=== PATIENT | male | born 1985 | race Hispanic/Latino ===

== ENCOUNTER 2022-08-20 14:11 | Emergency (ER) | payer SELFPAY ==
--- NOTE | 2022-08-20 15:33 | RAD REPORT ---
EXAM DESCRIPTION: RAD - Foot Right 3 View - 08/20/2022 3:17 pm CLINICAL HISTORY: PAIN COMPARISON: No comparisons FINDINGS/IMPRESSION: No acute fracture. No malalignment. Small dorsal aspect calcaneal spur. Nonaggr essive appearing osseous lesion in the fourth metatarsal diaphysis which may be postoperative.
--- NOTE | 2022-08-20 15:35 | RAD REPORT ---
EXAM DESCRIPTION: RAD - Ankle Right 3 View - 08/20/2022 3:17 pm CLINICAL HISTORY: ankle pain COMPARISON: No comparisons FINDINGS/IMPRESSION: No acute fracture. No malalignment. No significant focal degenerative changes.
--- NOTE | 2022-08-20 16:33 | EDPHYS ---
Physician Documentation [facility] Name: Nimesh Kim Age: 37 yrs Sex: Male : 1985 Arrival Date: 08/20/2022 Time: 14:15 Bed 12 Private MD: JAISON Physician John Hurtado HPI: 08/20 14:30 This 37 yrs old Male presents to ER via Ambulatory with complaints of Ankle jmm Injury. 14:30 The patient presents with an injury, pain. Onset: The symptoms/episode began/occurred jm acutely, just prior to arrival. 16:30 Associated signs and symptoms: Pertinent positives: swelling. Is a 37-year-old male jmm with history of diabetes mellitus the presents emerged part with complaints of right ankle pain. Patient states that he stepped in a hole while performing yard work this past , rolling his right ankle. Patient complains of pain mainly to the lateral and medial ankle but also initially did have some pain to the plantar surface of his foot. Denies other known injury.. Historical: - Allergies: 14:27 dust; tw2 14:27 Pet dander; tw2 - Home Meds: 14:27 metformin 500 mg Oral tab 1 tab 2 times per day [Active]; tw2 - PMHx: 14:27 Diabetes mellitus; tw2 - PSHx: 14:27 Right foot sx; Tonsillectomy; tw2 - Immunization history:: Client reports having NOT received the Covid vaccine. - Social history:: Smoking status: Patient reports the use of cigarette tobacco products, 1 pk a week. ROS: 16:30 Constitutional: Negative for fever, chills, and weight loss, Cardiovascular: Negative jmm for chest pain, palpitations, and edema, Respiratory: Negative for shortness of breath, cough, wheezing, and pleuritic chest pain. 16:30 MS/extremity: Positive for injury or acute deformity, pain. 16:30 All other systems are negative. Exam: 16:30 Constitutional: This is a well developed, well nourished patient who is awake, alert, jmm and in no acute distress. Head/Face: atraumatic. Eyes: EOMI, no conjunctival erythema appreciated ENT: Moist Mucus Membranes Neck: Trachea midline, Supple Chest/axilla: Normal chest wall appearance and motion. Cardiovascular: Regular rate and rhythm. No edema appreciated Respiratory: Normal respirations, no respiratory distress appreciated Abdomen/GI: Non distended Back: Normal ROM Skin: General appearance color normal 16:30 Musculoskeletal/extremity: Mild swelling noted to the ankle, lateral and medial malleolus tender to palpation, no obvious deformity, full dorsalis pedis pulse, compartments are soft, neurovascular intact. 16:30 Skin: Appearance: Color: normal in color. 16:30 Neuro: Orientation: is normal, Mentation: is normal, Memory: is normal. 16:30 Psych: Behavior/mood is pleasant, cooperative. Vital Signs: 14:26 BP 137 / 90; Pulse 118; Resp 17; Temp 98.8(TE); Pulse Ox 97% on R/A; Weight 90.72 kg tw2 (R); Height 5 ft. 8 in. (172.72 cm); Pain 3/10; 14:26 Body Mass Index 30.41 (90.72 kg, 172.72 cm) tw2 MDM: 14:33 Patient medically screened. [facility] 16:32 Data reviewed: vital signs, nurses notes. Counseling: I had a detailed discussion with ras the patient and/or guardian regarding: the historical points, exam findings, and any diagnostic results supporting the discharge/admit diagnosis, radiology results, the need for outpatient follow up. 08/20 14:29 Order name: Ankle Right 3 View XRAY; Complete Time: 15:35 [facility] 08/20 14:29 Order name: Foot Right 3 View XRAY; Complete Time: 15:35 [facility] 08/20 16:16 Order name: Shane wrap-joint; Complete Time: 16:43 [facility] Administered Medications: No medications were administered Disposition Summary: 08/20/22 16:32 Discharge Ordered Location: Home [facility] Condition: Stable [facility] Diagnosis - Sprain of ankle [facility] Followup: [facility] - With: Private Physician - When: 2 - 3 days - Reason: Recheck today's complaints, Continuance of care, Re-evaluation by your physician Discharge Instructions: - Ankle Sprain [facility] - Discharge Summary Sheet tw2 Forms: - Medication Reconciliation Form [facility] - Thank You Letter mitch - Antibiotic Education mitch - Prescription Opioid Use [facility] - Work release form tw2 Signatures: Dispatcher [employer] Rod Ponce PA PA jmm Wise, Tara RN RN tw2 Corrections: (The following items were deleted from the chart) 14:27 Allergies: No Known Allergies; tw2 tw2
--- NOTE | 2022-08-20 16:33 | ER ---
Nurse's Notes [facility] Name: Nimesh Kim Age: 37 yrs Sex: Male : 1985 Arrival Date: 08/20/2022 Time: 14:15 Bed 12 Private MD: Diagnosis: Sprain of ankle Presentation: 08/20 14:26 Chief complaint: Patient states: i was cutting the grass after work and i tw2 rolled my RIGHT ankle. i have had surgery there and it is hurting in certain places. i want to get it checked out. Coronavirus screen: At this time, the client does not indicate any symptoms associated with coronavirus-19. Ebola Screen: Patient denies travel to an Ebola-affected area in the 21 days before illness onset. Initial Sepsis Screen: Does the patient meet any 2 criteria? HR > 90 bpm. No. Patient's initial sepsis screen is negative. Does the patient have a suspected source of infection? No. Patient's initial sepsis screen is negative. Risk Assessment: Do you want to hurt yourself or someone else? Patient reports no desire to harm self or others. Onset of symptoms was August 20, 2022. 14:26 Method Of Arrival: Ambulatory tw2 14:26 Acuity: TAMEKA 4 tw2 Triage Assessment: 14:29 General: Appears in no apparent distress. well groomed, Behavior is calm, cooperative, tw2 appropriate for age. Pain: Complains of pain in right foot. Musculoskeletal: Range of motion: intact in all extremities. Historical: - Allergies: 14:27 dust; tw2 14:27 Pet dander; tw2 - Home Meds: 14:27 metformin 500 mg Oral tab 1 tab 2 times per day [Active]; tw2 - PMHx: 14:27 Diabetes mellitus; tw2 - PSHx: 14:27 Right foot sx; Tonsillectomy; tw2 - Immunization history:: Client reports having NOT received the Covid vaccine. - Social history:: Smoking status: Patient reports the use of cigarette tobacco products, 1 pk a week. Screenin:11 Abuse screen: Denies threats or abuse. Nutritional screening: No deficits noted. tw2 Tuberculosis screening: No symptoms or risk factors identified. Fall Risk None identified. Assessment: 15:33 General: Appears in no apparent distress. Behavior is calm, cooperative. Pain: Pain hb currently is 3 out of 10 on a pain scale. Neuro: Level of Consciousness is awake, alert, obeys commands, Oriented to person, place, time, situation. Cardiovascular: Patient's skin is warm and dry. Respiratory: Respiratory effort is even, unlabored, Respiratory pattern is regular, symmetrical. GI: No signs and/or symptoms were reported involving the gastrointestinal system. : No signs and/or symptoms were reported regarding the genitourinary system. EENT: No signs and/or symptoms were reported regarding the EENT system. Derm: Skin is pink, warm \T\ dry. Musculoskeletal: Reports RIGHT ANKLE PAIN. 16:23 Reassessment: Patient appears in no apparent distress at this time. Patient and/or hb family updated on plan of care and expected duration. Pain level reassessed. Patient is alert, oriented x 3, equal unlabored respirations, skin warm/dry/pink. Vital Signs: 14:26 BP 137 / 90; Pulse 118; Resp 17; Temp 98.8(TE); Pulse Ox 97% on R/A; Weight 90.72 kg tw2 (R); Height 5 ft. 8 in. (172.72 cm); Pain 3/10; 14:26 Body Mass Index 30.41 (90.72 kg, 172.72 cm) tw2 ED Course: 14:15 Patient arrived in ED. ja2 14:16 Rod Black PA is PHCP. [facility] 14:16 John Hurtado MD is Attending Physician. [facility] 14:27 Triage completed. tw2 14:27 Arm band placed on. tw2 15:11 pt in main lobby seated in chair. tw2 15:19 Ankle Right 3 View XRAY In Process Unspecified. EDMS 15:19 Foot Right 3 View XRAY In Process Unspecified. EDMS 15:33 Karina Garcia, RN is Primary Nurse. hb Administered Medications: No medications were administered Medication: 15:11 VIS not applicable for this client. tw2 Outcome: 16:32 Discharge ordered by . [facility] 16:44 Patient left the ED. hb Signatures: Dispatcher [employer] EDMS Rod Black PA PA jmm Baxter, Heather, RN RN Brinda Lozada RN RN tw2 Flor Arreola ja2 Corrections: (The following items were deleted from the chart) 1429 14:27 Allergies: No Known Allergies; tw2 tw2
[2022-08-20 16:58] VITALS: BP 137/90; TEMP 98.8; O2SAT 97
== END 2022-08-20 16:44 | disposition home or self-care (01) ==
LOC: ER 14:11
DX: S93.401A Sprain of unspecified ligament of right ankle, initial encounter (principal); E11.9 Type 2 diabetes mellitus without complications; F17.210 Nicotine dependence, cigarettes, uncomplicated
CPT/HCPCS: 99282

== ENCOUNTER → 2023-12-10 | Emergency (ER) | payer OTHER ==
--- OUTSIDE RECORDS SUMMARY | 2023-12-10 17:29 | XMS REPORT | Continuity of Care Document ---
Author Name Unknown Address [address] [facility] [address] [place] [address] [facility] thconnect Address [address] [facility] [place] [address] Care Team Providers Care Vice Chancellor Name Role Phone Unavailable Unavailable Unavailable Encounters Start Date/Time End Date/Time Encounter Type Admission Type Attending [facility] Facility Care Department Encounter ID Source 2023-08-10 08:07:00 2023-08-10 08:07:00 Outpatient SFA SFA [id number] Adam Cazares 2023-05-24 13:09:55 2023-05-24 13:09:55 Outpatient SFA SFA [id number] Adam Cazares 2023-05-14 11:39:35 2023-05-14 11:39:35 Outpatient SFA SFA [id number] Adam Cazares 2023-02-09 07:57:02 2023-02-09 07:57:02 Outpatient SFA SFA [id number] Adam Cazares 2023-01-16 08:05:54 2023-01-16 08:05:54 Outpatient SFA SFA [id number] Adam Cazares 2022-10-18 13:04:42 2022-10-18 13:04:42 Outpatient SFA SFA [id number] Adam Cazares 2022-10-13 10:21:50 2022-10-13 10:21:50 Outpatient SFA SFA [id number] Adam Cazares Results Test Description Test Time Test Comments Results Result Co mments Source COMPREHENSIVE METABOLIC [id number] 05:20:01* Test Item Value Reference Range Interpretation Comme nts GLUCOSE (test code = 2217) 156 MG/DL 70-99 H BUN (test code = 2207) 17 MG/DL 6-20 CREATININE (test code = 2213) 0.94 MG/DL 0.80-1.40 eGFR (2020 CKD-EPI) (test code = ) 106 ML/MIN/1.73 >60 CALC BUN/CREAT (test code = 2234) 18 RATIO 6-28 SODIUM (test code = 2230) 137 MEQ/L 133-146 POTASSIUM (test code = 2227) 4.2 MEQ/L 3.5-5.4 CHLORIDE (test code = 2214) 100 MEQ/L 95-107 CARBON DIOXIDE (test code = 2205) 24 MEQ/L 19-31 CALCIUM (test code = 2208) 9.5 MG/DL 8.5-10.5 PROTEIN, TOTAL (test code = 2228) 7.4 G/DL 6.1-8.3 ALBUMIN (test code = 2200) 4.7 G/DL 3.5-5.2 CALC GLOBULIN (test code = 2239) 2.7 G/DL 1.9-3.7 CALC A/G RATIO (test code = 2233) 1.7 RATIO 1.0-2.6 BILIRUBIN, TOTAL (test code = 2206) 0.4 MG/DL See_Comment [Automated me ssage] The system which generated this result transmitted reference range: <=1.2. The reference range was not used to interpret this result as normal/abnormal. ALKALINE PHOSPHATASE (test code = 2203) 89 U/L 40-117 AST (test code = 2217) 32 U/L 9-50 ALT (test code = 2218) 58 U/L 5-50 H LIPID [id number] 05:43:22* Test Item Value Reference Range Interpretation Comme nts CHOLESTEROL (test code = 0) 174 MG/DL <200 TRIGLYCERIDES (test code = 2232) 138 MG/DL <150 HDL CHOLESTEROL (test code = 2220) 35 MG/DL >39 L CALC LDL CHOL (test code = 7) 113 MG/DL <100 H NOTE: CALCULATED LDL IS BASED ON ADIS-PETERSEN METHOD WHICHINCLUDES ADJUSTABLE TRIGLYCERIDE:VLDL CHOLESTEROL RATIO.THIS FACTOR VARIES BY MEASURED TRIGLYCERIDE AND NON-HDLCHOLESTEROL CONCENTRATIONS WITH INCREASED CALCULATED LDL SEENIN HIGHER TRIGLYCERIDE OR LOWER NON-HDL SPECIMENS. FOR MOREINFORMATION, SEE CLIENT ANNOUNCEMENT AT [email or web address] /[email or web address] [email or web address] RATIO LDL/HDL (test code = 2238) 3.23 RATIO <3.55 HEMOGLOBIN [id number] 02:29:51* Test Item Value Reference Range Interpretation Comme nts HEMOGLOBIN A1c (test code = 06636) 8.0 % 4.2-5.6 H CITIZEN OF [place] [employer] GUIDELINES FOR HGB A1C: PREDIABETES/INCREASED RISK . . . . . . . 5.7-6.4% DIAGNOSIS OF DIABETES . . . . . . . . . >=6.5% WITH CONFIRMATION OR APPROPRIATE SYMPTOMS NOTE: ASSAY MAY BE AFFECTED BY HEMOGLOBINOPATHIES (SICKLE CELL ANEMIA, S-C DISEASE, OTHERS) OR ARTIFICIALLY LOWERED BY DECREASED RED CELL SURVIVAL (HEMOLYTIC ANEMIAS, BLOOD LOSS, ETC.). CONSIDER ALTERNATE TESTING OR LABORATORY CONSULTATION. [facility] has important pathology staff changes effective 01/03/2023. New pathology staff will provide uninterrupted, excellent patient care and clinical consultation. See URL: [email or web address]. UNLESS OTHERWISE INDICATED, ALL TESTING PERFORMED AT [facility] [address] [place] [address] TRANSFER MAN: DAINA GALE M.D. CLIA NUMBER [id number] [facility]. [id number] LIPID [id number] 05:28:46* Test Item Value Reference Range Interpretation Comme nts CHOLESTEROL (test code = 2210) 225 MG/DL <200 H TRIGLYCERIDES (test code = 2232) 162 MG/DL <150 H HDL CHOLESTEROL (test code = 2220) 32 MG/DL >39 L CALC LDL CHOL (test code = 2237) 162 MG/DL <100 H NOTE: CALCULATED LDL IS BASED ON ADIS-PETERSEN METHOD WHICHINCLUDES ADJUSTABLE TRIGLYCERIDE:VLDL CHOLESTEROL RATIO.THIS FACTOR VARIES BY MEASURED TRIGLYCERIDE AND NON-HDLCHOLESTEROL CONCENTRATIONS WITH INCREASED CALCULATED LDL SEENIN HIGHER TRIGLYCERIDE OR LOWER NON-HDL SPECIMENS. FOR MOREINFORMATION, SEE CLIENT ANNOUNCEMENT AT [email or web address] /[email or web address] RISK RATIO LDL/HDL (test code = 2238) 5.06 RATIO <3.55 H HEMOGLOBIN [id number] 01:53:52* Test Item Value Reference Range Interpretation Comme nts HEMOGLOBIN A1c (test code = 56961) 8.0 % 4.2-5.6 H CITIZEN [place] [employer] GUIDELINES FOR HGB A1C: PREDIABETES/INCREASED RISK . . . . . . . 5.7-6.4% DIAGNOSIS OF DIABETES . . . . . . . . . >=6.5% WITH CONFIRMATION OR APPROPRIATE SYMPTOMS NOTE: ASSAY MAY BE AFFECTED BY HEMOGLOBINOPATHIES (SICKLE CELL ANEMIA, S-C DISEASE, OTHERS) OR ARTIFICIALLY LOWERED BY DECREASED RED CELL SURVIVAL (HEMOLYTIC ANEMIAS, BLOOD LOSS, ETC.). CONSIDER ALTERNATE TESTING OR LABORATORY CONSULTATION. UNLESS OTHERWISE INDICATED, ALL TESTING PERFORMED [facility] [address] [place] [address] TRANSFER MAN: ELIZABETH SANTAMARIA M.D. [place] NUMBER [id number] [facility]. [id number]
--- NOTE | 2023-12-10 18:37 | RAD REPORT ---
EXAM DESCRIPTION: RAD - Chest Pa And Lat (2 Views) - 12/10/2023 6:12 pm CLINICAL HISTORY: COUGH COMPARISON: No comparisons TECHNIQUE: PA and lateral views of the chest were obtained. FINDINGS: The lungs are clear. Heart size is mildly prominent. central vasculature is within normal limits. No pleural effusion or pneumothorax seen. No acute bony finding noted. IMPRESSION: Mild cardiomegaly. No focal pulmonary process.
--- NOTE | 2023-12-10 18:39 | EDPHYS ---
Physician Documentation [facility] Name: Nimesh Kim Age: 38 yrs Sex: Male : 1985 Arrival Date: 12/10/2023 Time: 17:25 Bed DX4 Private MD: ED Physician Kenneth Felix HPI: 12/10 17:44 This 38 yrs old Male presents to ER via Unassigned with complaints of Cough, kb Abdominal Pain. 17:44 Pt is a 38 year old male who presents for cough that has been ongoing since October. kb States he had the flu in October and the cough never resolved. Denies fever. States he now has upper abd pain only when he coughs. Denies abd tenderness, n/v/d. . Historical: - Allergies: 17:46 DUST; mb9 17:46 Pet dander; mb9 - Home Meds: 17:46 metformin 500 mg Oral tab 1 tab 2 times per day [Active]; mb9 - PMHx: 17:46 diabetes mellitus; mb9 - PSHx: 17:46 Tonsillectomy; Right foot sx; mb9 - Immunization history:: Adult Immunizations up to date. - Social history:: Smoking status: Patient/guardian denies using tobacco, Stopped _ months ago 1. ROS: 17:43 Constitutional: Negative for fever, chills, and weight loss, kb 17:43 Respiratory: Positive for cough, 17:43 All other systems are negative, Exam: 17:43 Constitutional: This is a well developed, well nourished patient who is awake, alert, kb and in no acute distress. Head/Face: Normocephalic, atraumatic. ENT: Moist Mucous membranes Cardiovascular: Regular rate Respiratory: Respirations even and unlabored. No increased work of breathing. Talking in full sentences Abdomen/GI: Soft, non-tender. No distention Skin: Warm, dry with normal turgor. Normal color. MS/ Extremity: Pulses equal, no cyanosis. Neurovascular intact. Full, normal range of motion. Neuro: Awake and alert, GCS 15, oriented to person, place, time, and situation. Moves all extremities. Normal gait. Vital Signs: 17:45 BP 129 / 79; Pulse 90; Resp 18; Temp 98; Pulse Ox 100% ; Weight 100.7 kg; Height 5 ft. mb9 8 in. ; Pain 0/10; 17:45 Body Mass Index 33.75 (100.70 kg, 172.72 cm) mb9 17:45 Pain Scale: Adult mb9 MDM: 17:31 Patient medically screened. kb 18:38 Differential Diagnosis: Bronchitis Pneumonia Other muscle strain. Data reviewed: vital kb signs, nurses notes. Counseling: I had a detailed discussion with the patient and/or guardian regarding the historical points, exam findings, and any diagnostic results supporting the discharge/admit diagnosis, radiology results, the need for outpatient follow up, a family practitioner, to return to the emergency department if symptoms worsen or persist or if there are any questions or concerns that arise at home. 12/10 17:43 Order name: Chest Pa And Lat (2 Views) XRAY; Complete Time: 18:38 kb Administered Medications: No medications were administered Disposition: 18:08 I was immediately available on-site in the Emergency Department for consultation in the ms3 care of the patient. Disposition Summary: 12/10/23 18:39 Discharge Ordered Notes: Location: Home kb Condition: Stable kb Diagnosis - Cough kb Followup: kb - With: Emergency Department - When: As needed - Reason: Worsening of condition Followup: kb - With: Private Physician - When: 2 - 3 days - Reason: Recheck today's complaints, Continuance of care, Re-evaluation by your physician Discharge Instructions: - Discharge Summary Sheet kb - Cough, Adult, Genp-qp-[id number] kb Forms: - Medication Reconciliation Form kb - Thank You Letter kb - Antibiotic Education kb - Prescription Opioid Use kb - Patient Portal Instructions kb - Leadership Thank You Letter kb - Work release form as6 Prescriptions: - Tessalon Perles 100 mg Oral Capsule - take 1 capsule ORAL route every 8 hours As needed; 15 capsule; Refills: 0, kb Product Selection Permitted Signatures: Dispatcher [employer] Natalie Cisse, Kenneth Gay DO DO ms3 Susana Garcia, RN RN mb9
--- NOTE | 2023-12-10 18:39 | ER ---
Nurse's Notes [facility] Name: Nimesh Kim Age: 38 yrs Sex: Male : 1985 Arrival Date: 12/10/2023 Time: 17:25 Bed DX4 Private MD: Diagnosis: Cough Presentation: 12/10 17:45 Chief complaint: Patient states: "I've had this cough since October and it's not mb9 getting better. I get this tightness across my abdomen when I cough.". Coronavirus screen: Vaccine status: Patient reports being unvaccinated. Ebola Screen: No symptoms or risks identified at this time. Initial Sepsis Screen: Does the patient meet any 2 criteria? No. Patient's initial sepsis screen is negative. Does the patient have a suspected source of infection? No. Patient's initial sepsis screen is negative. Risk Assessment: Do you want to hurt yourself or someone else? Patient reports no desire to harm self or others. Onset of symptoms was December 10, 2023. 17:45 Method Of Arrival: Ambulatory [facility] 17:45 Acuity: TAMEKA 4 mb9 Triage Assessment: 17:47 General: Appears in no apparent distress. Behavior is calm, cooperative. Pain: Denies mb9 pain. EENT: No signs and/or symptoms were reported regarding the EENT system. Neuro: Carey Agitation-Sedation Scale (RASS): 0 - Alert and Calm Level of Consciousness is awake, alert, obeys commands, Oriented to person, place, time, situation, Appropriate for age. Cardiovascular: Patient's skin is warm and dry. Respiratory: Reports cough that is Airway is patent Respiratory effort is even, unlabored, Respiratory pattern is regular, symmetrical. GI: Abdomen is round non-distended, Bowel sounds present X 4 quads. Abd is soft and non tender X 4 quads. : No signs and/or symptoms were reported regarding the genitourinary system. Derm: Skin is pink, warm \\T\\ dry. Musculoskeletal: Range of motion: intact in all extremities. Historical: - Allergies: 17:46 DUST; mb9 17:46 Pet dander; mb9 - Home Meds: 17:46 metformin 500 mg Oral tab 1 tab 2 times per day [Active]; mb9 - PMHx: 17:46 diabetes mellitus; mb9 - PSHx: 17:46 Tonsillectomy; Right foot sx; mb9 - Immunization history:: Adult Immunizations up to date. - Social history:: Smoking status: Patient/guardian denies using tobacco, Stopped _ months ago 1. Screenin:[address] [facility] ED Fall Risk Assessment (Adult) History of falling in the last 3 months, mb9 including since admission No falls in past 3 months (0 pts) Confusion or Disorientation No (0 pts) Intoxicated or Sedated No (0 pts) Impaired Gait No (0 pts) Mobility Assist Device Used No (0 pt) Altered Elimination No (0 pt) Score/Fall Risk Level 0 - 2 = Low Risk Oriented to surroundings, Maintained a safe environment, Educated pt \\T\\ family on fall prevention, incl call for assistance when getting out of bed. Abuse screen: Denies threats or abuse. Nutritional screening: No deficits noted. Tuberculosis screening: No symptoms or risk factors identified. Assessment: 17:48 Reassessment: see triage assessment. mb9 Vital Signs: 17:45 BP 129 / 79; Pulse 90; Resp 18; Temp 98; Pulse Ox 100% ; Weight 100.7 kg; Height 5 ft. mb9 8 in. ; Pain 0/10; 17:45 Body Mass Index 33.75 (100.70 kg, 172.72 cm) mb9 17:45 Pain Scale: Adult mb9 ED Course: 17:29 Patient arrived in ED. mr 17:31 [facility] Ol[facility]C [facility] kb 17:31 Kenneth Felix DO is Attending Physician. kb 17:45 Arm band placed on. mb9 17:46 Triage completed. mb9 17:47 Call light in reach. Client placed on continuous cardiac and pulse oximetry monitoring. mb9 NIBP monitoring applied. 18:13 Chest Pa And Lat (2 Views) XRAY In Process Unspecified. EDMS 18:46 Provided Education on: follow up. as6 18:46 No provider procedures requiring assistance completed. Patient did not have IV access as6 during this emergency room visit. Administered Medications: No medications were administered Medication: 17:47 VIS not applicable for this client. mb9 Outcome: 18:39 Discharge ordered by MD. kb 18:46 Discharged to home ambulatory, as6 18:46 Condition: stable 18:46 Discharge instructions given to patient, Instructed on discharge instructions, follow up and referral plans. medication usage, Demonstrated understanding of instructions, follow-up care, medications, Prescriptions given X 1, 18:47 Patient left the ED. as6 Signatures: Dispatcher [employer] EDMS Natalie Olmos, USHA COYLE-Susana Dior, Reg Reg AdryanestherNas RN RN as6 Susana Garcia RN RN mb9
[2023-12-11 11:59] VITALS: BP 129/79; TEMP 98; O2SAT 100
== END ==
LOC: ER 17:25
DX: R05.9 Cough, unspecified (principal); E11.9 Type 2 diabetes mellitus without complications; J30.89 Other allergic rhinitis
CPT/HCPCS: 71046